=== PATIENT | female | born 1960 | race Caucasian/White ===

== ENCOUNTER → 2016-05-30 | Outpatient (CLI) | payer OTHER | LOC: CAT 04-17 09:07 | DX: Z13.6 Encounter for screening for cardiovascular disorders (principal) ==

== ENCOUNTER → 2021-02-11 | Outpatient (CLI) | payer OTHER | LOC: SJCVCIMAG 16:04 → SJCVC 16:04 | PROVIDERS: ATTEND Internal Medicine Cardiovascular Disease | DX: M79.602 Pain in left arm (principal) ==